=== PATIENT | male | born 1945 | race Caucasian/White ===

== ENCOUNTER 2017-10-29 11:14 | Day surgery (SDC) | payer OTHER ==
[~2017-10-29] VITALS: Ht 172.7 cm; Wt 80.0 kg
[2017-10-29] MEDS ORDERED: ATOR20 (11:36)
[2017-10-29] MEDS ORDERED: AMLO5 (11:36)
[2017-10-29] MEDS ORDERED: LOSA50 PO (11:36)
[2017-10-29] MEDS ORDERED: SYNTHROID25 MCG (11:37)
[2017-10-29] MEDS ORDERED: CLOB.05TO (11:38)
[2017-10-29] MEDS ORDERED: Omeprazole20 M1 (11:38)
[2017-10-29] MEDS ORDERED: MONT10T (11:38)
[2017-10-29] MEDS ORDERED: ZOLP10 (11:38)
[2017-10-29] MEDS ORDERED: CETI5 PO (11:38)
[2017-10-29] MEDS ORDERED: Requip0.5 MG (11:38)
[2017-10-29] MEDS ORDERED: ALBU90OI61 (11:39)
[2017-10-29] MEDS ORDERED: Glucosamine H1500 MG (11:39)
[2017-10-29] MEDS ORDERED: MAGOXI400 (11:39)
[2017-10-29] MEDS ORDERED: Betamethasone D30 ML (11:40)
== END 2017-10-29 12:13 | disposition home or self-care (01) ==
LOC: ORSCSDS 11:14
PROVIDERS: Anesthesiology
PROC: 3E0R33Z Introduction of Anti-inflammatory into Spinal Canal, Percutaneous Approach (ICD-10-PCS; principal; 2017-10-29 12:00)
DX: M51.16 Intervertebral disc disorders with radiculopathy, lumbar region (principal); K21.9 Gastro-esophageal reflux disease without esophagitis; I10 Essential (primary) hypertension; E78.00 Pure hypercholesterolemia, unspecified; E03.9 Hypothyroidism, unspecified; Z87.891 Personal history of nicotine dependence; Z79.899 Other long term (current) drug therapy
CPT/HCPCS: J1040

== ENCOUNTER 2018-06-23 07:43 | Day surgery (SDC) | payer OTHER ==
[~2018-06-23] VITALS: Ht 172.7 cm; Wt 80.0 kg
[~2018-06-23 07:43] MED LIST: ALBU90OI61; AMLO5 PO; ATOR20 PO; Betamethasone D30 ML TOP; CETI5 PO; CLOB.05TO; Glucosamine H1500 MG; LOSA50 PO; MAGOXI400; MONT10T PO; Omeprazole20 M1 PO; Requip0.5 MG PO; SYNTHROID25 MCG PO; ZOLP10 PO
[2018-06-23] MEDS ORDERED: ALBU90OI6 INH (08:47)
[2018-06-23] MEDS ORDERED: Clobetasol Emol15 GM TD (08:48)
[2018-06-23] MEDS ORDERED: Adult Low Dose81 MG PO (09:03)
--- NOTE | 2018-06-23 12:40 | NUR ---
AMBULATED TO BATHROOM. TOLERATED WELL.
--- NOTE | 2018-06-23 12:48 | NUR ---
2 CC AIR REMOVED FROM TR BAND. NO BLEEDING AT SITE. ADDITIONAL 3 CC REMOVED. SLIGHT OOZING. 2 CC AIR INSERTED.
--- NOTE | 2018-06-23 13:00 | NUR ---
1 CC AIRE REMOVED FROM TR BAND. NO BLEEDING AT SITE.
--- NOTE | 2018-06-23 13:20 | NUR ---
REMAINDER OF AIR REMOVED FROM TR BAND. SLIGHT OOZE AT SITE BUT NO ACTIVE BLEEDING.
--- NOTE | 2018-06-23 13:43 | NUR ---
DISCHARGE INSTRUCTIONS GIVEN WITH VERBAL AND WRITTEN UNDERSTANDING.
--- NOTE | 2018-06-23 13:56 | NUR ---
DRESSING FOR DISCHARGE.
--- NOTE | 2018-06-23 14:15 | NUR ---
DISCHARGED HOME VIA WHEELCHAIR. SISTER DRIVING.
== END 2018-06-23 14:15 | disposition home or self-care (01) ==
LOC: MHTC 07:43
DX: R94.30 Abnormal result of cardiovascular function study, unspecified (principal); R94.31 Abnormal electrocardiogram [ECG] [EKG]
CPT/HCPCS: 93458; 99152; 99153; C1769; C1894; J1644; J2250; J3010; J7030; Q9967

== ENCOUNTER 2018-12-31 11:47 | Emergency (ER) | payer OTHER ==
[~2018-12-31] VITALS: Ht 172.7 cm; Wt 77.1 kg
[~2018-12-31 11:47] MED LIST changes: +ALBU90OI6 INH; +Adult Low Dose81 MG PO; +Clobetasol Emol15 GM TD
[2018-12-31 12:33] LABS: Source, Urine Clean Catch
[2018-12-31 12:37] LABS: BASOPHILS ABSOLUTE AUTO 0.08 K/mm3 (0.00-0.23); BASOPHILS PERCENT AUTO 2 % (0-2); EOSINOPHILS ABSOLUTE AUTO 0.22 K/mm3 (0.00-0.68); EOSINOPHILS PERCENT AUTO 4 % (0-6); Hematocrit 44.6 % (37.0-53.0); IMMATURE GRAN ABSOLUTE AUTO 0.01 K/mm3 (0.00-0.10); IMMATURE GRAN PERCENT AUTO 0 % (0-1); LYMPHOCYTES ABSOLUTE AUTO 0.92 K/mm3 (0.84-5.20); LYMPHOCYTES PERCENT AUTO 19 % (21-46); MONOCYTES ABSOLUTE AUTO 0.46 K/mm3 (0.16-1.47); MONOCYTES PERCENT AUTO 9 % (4-13); Mean Corpuscular HGB 30.2 pg (26.0-34.0); Mean Corpuscular HGB Conc 33.6 g/dL (31.5-36.5); Mean Corpuscular Volume 90 fL (80-100); Mean Platelet Volume 11.2 fL (9.1-12.4); NEUTROPHILS ABSOLUTE AUTO 3.29 K/mm3 (1.96-9.15); NEUTROPHILS PERCENT AUTO 66 % (41-73); Platelet Count 155 K/mm3 (150-400); RDW Coefficient Variation 12.8 % (11.7-14.2); Red Blood Cell Count 4.96 M/mm3 (4.30-5.90); White Blood Cell Count 4.98 K/mm3 (4.00-11.30)
[2018-12-31 12:38] LABS: Bilirubin, Urine Neg (Neg); Blood, Urine Neg (Neg); Glucose Qualitative, Urine Neg (Neg); Ketones, Urine Neg (Neg); Leukocyte Esterase, Urine Neg (Neg); Nitrite, Urine Neg (Neg); Protein, Urine Neg (Neg); Urobilinogen, Urine NORM (Normal)
[2018-12-31 12:53] LABS: Appearance, Urine Clear (Clear); Color, Urine Yellow (P-Yellow)
[2018-12-31 13:47] LABS: Alanine Aminotransfer (ALT/SGP 22 U/L (12-78); Albumin, Blood 4.3 g/dL (3.4-5.0); Albumin/Globulin Ratio 1.3 (0.8-1.8); Alk Phos 142 U/L (40-126); Anion Gap 7 mmol/L (6-16); Aspartate Aminotrans (AST/SGOT 22 U/L (12-37); Bilirubin, Total 0.8 mg/dL (0.1-1.0); Blood Urea Nitrogen 16 mg/dL (8-24); CO2, Blood 29 mmol/L (21-32); Calcium, Blood 9.2 mg/dL (8.5-10.1); Chloride, Blood 101 mmol/L (98-108); Creatinine, Blood 1.14 mg/dL (0.60-1.20); Globulin, Blood 3.3 g/dL (2.2-4.0); Glomerular Filtration Rate >60 (60-); Glucose, Blood 96 mg/dL (70-99); Potassium, Blood 4.2 mmol/L (3.5-5.5); Sodium, Blood 137 mmol/L (136-145); Total Protein, Blood 7.6 g/dL (6.4-8.2)
[2018-12-31] MEDS ORDERED: BISA5EC PO (15:13)
[2018-12-31] MEDS ORDERED: CITRATE OF MAG296 ML PO (15:13)
== END 2018-12-31 15:27 | disposition home or self-care (01) ==
LOC: ER 11:47
PROVIDERS: Physician Assistant
DX: S30.1XXA Contusion of abdominal wall, initial encounter (principal); K59.00 Constipation, unspecified; Z87.891 Personal history of nicotine dependence; Z79.899 Other long term (current) drug therapy; Z79.82 Long term (current) use of aspirin; W06.XXXA Fall from bed, initial encounter
CPT/HCPCS: 36415; 74177; 80053; 81003; 85025; 99284-25; Q9967

== ENCOUNTER → 2022-05-06 | Outpatient (CLI) | payer OTHER ==
[~2022-05-06] MED LIST changes: +BISA5EC PO; +BREO ELLIPTA 11 EAC1 INH; +CHLO25B PO; +CITRATE OF MAG296 ML PO; +DICLOFENAC SOD100 GM TOP; +Fluocinonide15 GM TOP; +Ketoconazole120 ML TOP; +TEMOVATE15 G1 TOP
[2022-05-07 21:12] LABS: Adenovirus F 40/41 Not Detected (NOT DETECT); Astrovirus Not Detected (NOT DETECT); Campylobacter Sp Not Detected (NOT DETECT); Cryptosporidium Not Detected (NOT DETECT); Cyclospora Cayetanensis Not Detected (NOT DETECT); E. Coli O157 Not Detected (NOT DETECT); Entamoeba Histolytica Not Detected (NOT DETECT); Enteroaggregative E. coli-EAEC Not Detected (NOT DETECT); Enteropathogenic E. coli-EPEC Not Detected (NOT DETECT); Enterotoxigenic E. coli-ETEC Not Detected (NOT DETECT); Giardia Lamblia Not Detected (NOT DETECT); Norovirus GI/GII Not Detected (NOT DETECT); Plesiomonas Shigelloides Not Detected (NOT DETECT); Rotavirus A Not Detected (NOT DETECT); Salmonella Sp Not Detected (NOT DETECT); Sapovirus Not Detected (NOT DETECT); Shiga Toxin-prod E. coli-STEC Not Detected (NOT DETECT); Shigella/Enteroin E. coli-EIEC Not Detected (NOT DETECT); Vibrio Cholerae Not Detected (NOT DETECT); Vibrio Sp Not Detected (NOT DETECT); Yersinia Enterocolitica Not Detected (NOT DETECT)
== END ==
LOC: LAB SHORT 16:11
PROVIDERS: Family Medicine
DX: R19.7 Diarrhea, unspecified (principal)
CPT/HCPCS: 87507

== ENCOUNTER 2024-06-22 09:23 | Day surgery (SDC) | payer OTHER ==
[~2024-06-22] VITALS: Ht 170.2 cm; Wt 78.3 kg
[2024-06-22] VITALS (14 sets, daily range): BP systolic 93–135; BP diastolic 55–86
[~2024-06-22 09:23] MED LIST changes: +Betamethasone V15 GM TOP; +FLUT1DIS5 INH; +ROPI.25 PO
[2024-06-22] MEDS ORDERED: OxyCODONE HCL 10 MG TABCR PO SCH (09:30)
[2024-06-22] MEDS ORDERED: CeFAZolin Sodium 2,000 MG in NS 100 ML IV SCH ×2 (09:30→21:00)
[2024-06-22] MEDS ORDERED: Ropivacaine 0.5% HCl/Pf 123.125 MG,EPINEPHrine HCL 0.25 MG,Ketorolac Tromethamine 15 MG... INFIL SCH (09:30)
[2024-06-22] MEDS ORDERED: Acetaminophen 500 MG Tab PO SCH ×2 (09:30→21:00)
[2024-06-22] MEDS ORDERED: Chlorhexidine Mouth Care 15 ML UDC MT SCH (09:30)
[2024-06-22] MEDS ORDERED: Lactated Ringer's 1,000 ML IV SCH ×2 (09:30→11:30)
[2024-06-22] MEDS ORDERED: Tranexamic Acid 100 ML IV SCH (09:30)
[2024-06-22] MEDS ORDERED: CeFAZolin Sodium 2,000 MG VIAL ONE (10:15)
--- NOTE | 2024-06-22 10:22 | NUR ---
History, Chart, Medications and Allergies reviewed before start of procedure. lung sounds with expiratory rub in the bases. denies any cough our difficulty breathing. Patient reports completing Chlorhexadine shower X2 prior to admission to hospital. Patient confirms NPO status and agrees with scheduled surgery. Pre-Op teaching done. Pt verbalizes understanding.
[2024-06-22] MEDS ORDERED: DiphenhydrAMINE HCL 25 MG Cap PO PRN (11:30)
[2024-06-22] MEDS ORDERED: Magnesium Hydroxide Conc 10 ML UDC PO PRN (11:30)
[2024-06-22] MEDS ORDERED: FLU VACC TS2024-25(6MOS UP)/PF 45 MCG/0.5 ML SYRINGE IM ONE (11:30)
[2024-06-22] MEDS ORDERED: HYDROmorphone HCl 0.5 MG/0.5 ML SYR IV PRN ×2 (11:30→14:00)
[2024-06-22] MEDS ORDERED: Ondansetron HCl 2 MG / ML 2ML Vial IV PRN ×2 (11:35→14:00)
[2024-06-22] MEDS ORDERED: Metoclopramide HCl 5MG / ML 2ML Vial IV PRN (11:35)
[2024-06-22] MEDS ORDERED: Promethazine HCl 25 MG Tab PO PRN (11:35)
[2024-06-22] MEDS ORDERED: OxyCODONE HCL 5 MG TAB PO PRN ×2 (11:35)
[2024-06-22] MEDS ORDERED: Bisacodyl 10 MG Supp PR PRN (11:40)
[2024-06-22] MEDS ORDERED: Misc. Inhaler INH PRN (12:10)
[2024-06-22] MEDS ORDERED: Betamethasone Dip 0.05% Cream 15 gm TOP PRN (12:10)
[2024-06-22] MEDS ORDERED: Bupivacaine 0.75%/Dext 8.25% 2 ML Amp IT ONE ×2 (12:57→12:58)
[2024-06-22] MEDS ORDERED: propofoL 100 ML IV ONE (12:57)
[2024-06-22] MEDS ORDERED: FentaNYL Citrate 50 MCG/ML 2 ML Injection ONE (13:01)
[2024-06-22] MEDS ORDERED: Midazolam HCl 1MG / ML 2ML Vial ONE (13:01)
[2024-06-22] MEDS ORDERED: Ondansetron HCl 2 MG / ML 2ML Vial ONE (13:04)
[2024-06-22] MEDS ORDERED: Dexamethasone Sod Phos 10 MG/ML 1ML VIAL ONE (13:04)
[2024-06-22] MEDS ORDERED: Lidocaine HCl 2% 20 ML MDV ONE (13:39)
[2024-06-22] MEDS ORDERED: CeFAZolin Sodium 1000 mg Vial ONE (13:39)
[2024-06-22] MEDS ORDERED: Phenylephrine HCl 100 MCG/ML-NS 10MLSYR (1MG/10ML) ONE (13:45)
[2024-06-22] MEDS ORDERED: rOPINIRole HCl 0.25 MG Tab PO SCH (14:00)
[2024-06-22] MEDS ORDERED: FentaNYL Citrate 50 MCG/ML 2 ML Injection IV PRN ×3 (14:00→14:05)
--- NOTE | 2024-06-22 16:00 | NUR ---
POST OP ARRIVAL TO SURGICAL UNIT VIA HOSPITAL BED. ALERT, ORIENTED, & PLEASANT. ASSESSMENT CHARTED. ONLY GROSS MOVEMENT OF BLE; UNABLE TO WIGGLE TOES OR PUMP ANKLES. DENIES N/V SNACKS & DRINKS GIVEN.
[2024-06-22] MEDS ORDERED: Ketorolac Tromethamine 15mg Vial IV SCH (18:00)
[2024-06-22] MEDS ORDERED: Apixaban 5 MG Tab PO SCH (21:00)
[2024-06-22] MEDS ORDERED: Zolpidem Tartrate 10 MG Tab PO SCH (21:00)
[2024-06-22] MEDS ORDERED: Docusate Sodium 100 MG Cap PO SCH (21:00)
[2024-06-23 04:23] VITALS: BP 113/67
[2024-06-23 04:39] LABS: BASOPHILS ABSOLUTE AUTO 0.01 K/mm3 (0.00-0.23); BASOPHILS PERCENT AUTO 0 % (0-2); EOSINOPHILS PERCENT AUTO 0 % (0-6); Hematocrit 32.8 % (37.0-53.0); Hemoglobin 11.5 g/dL (13.5-17.5); IMMATURE GRAN ABSOLUTE AUTO 0.03 K/mm3 (0.00-0.10); IMMATURE GRAN PERCENT AUTO 0 % (0-1); LYMPHOCYTES ABSOLUTE AUTO 0.43 K/mm3 (0.84-5.20); LYMPHOCYTES PERCENT AUTO 4 % (21-46); MONOCYTES ABSOLUTE AUTO 0.36 K/mm3 (0.16-1.47); MONOCYTES PERCENT AUTO 3 % (4-13); Mean Corpuscular HGB 29.9 pg (26.0-34.0); Mean Corpuscular HGB Conc 35.1 g/dL (31.5-36.5); Mean Corpuscular Volume 85 fL (80-100); Mean Platelet Volume 10.8 fL (9.1-12.4); NEUTROPHILS ABSOLUTE AUTO 10.54 K/mm3 (1.96-9.15); NEUTROPHILS PERCENT AUTO 93 % (41-73); Platelet Count 142 K/mm3 (150-400); RDW Coefficient Variation 12.9 % (11.7-14.2); RDW Standard Deviation 39.3 fL (35.1-46.3); Red Blood Cell Count 3.85 M/mm3 (4.30-5.90); White Blood Cell Count 11.37 K/mm3 (4.00-11.30)
[2024-06-23 05:10] LABS: Bun/Creatinine Ratio 22.1 (12.0-20.0); Calcium, Blood 8.4 mg/dL (8.5-10.1); Creatinine, Blood 1.22 mg/dL (0.60-1.20); Potassium, Blood 3.9 mmol/L (3.5-5.5)
[2024-06-23] MEDS ORDERED: Levothyroxine Sodium 0.025 MG Tab PO SCH (06:00)
[2024-06-23] MEDS ORDERED: Omeprazole 20 MG CapCR PO SCH (06:00)
--- NOTE | 2024-06-23 06:39 | NUR ---
SHIFT SUMMARY NOC. PT POD 1 FOR RIGHT TOTAL KNEE. AQUACEL WITH SAKSHI WRAP C/D/I. PT HAD DIFFICULTY VOIDING THIS SHIFT BUT EMPTIED BLADDER IN MULTIPLE ATTEMPTS. PAIN MANAGED PER EMAR AND PT REPORT. SENSATION RETURNED POST SPINAL. PT ABLE TO AMBULATE TO ESQUIVEL WELL WITH FWW, GB AND SBA. PT TOLERATING PO. PT RESTED FOR BREIF PERIODS WITH CALL LIGHT IN REACH.
[2024-06-23 07:14] VITALS: BP 123/72
[2024-06-23] MEDS ORDERED: Montelukast Sodium 10 MG Tab PO SCH (09:00)
[2024-06-23] MEDS ORDERED: AmLODIPine Besylate 5 MG Tab PO SCH (09:00)
[2024-06-23] MEDS ORDERED: Atorvastatin 10 MG Tab PO SCH (09:00)
[2024-06-23] MEDS ORDERED: Losartan Potassium 50 MG Tab PO SCH (09:00)
[2024-06-23] MEDS ORDERED: HydroCHLOROthiazide 25 mg Tab PO SCH (09:00)
[2024-06-23] MEDS ORDERED: ELIQUIS2.5 MG PO (10:06)
--- NOTE | 2024-06-23 10:37 | NUR ---
DISCHARGE IV TAKEN OUT INTACT, ALL INSTRUCTIONS GIVEN AND SIGNED, VERBALIZED UNDERSTANDING. ICE PACK AND DISCHARGE INSTRUCTION WITH PATIENT, WHEELED OUT TO PRIVATE CAR.
== END 2024-06-23 10:31 | disposition home or self-care (01) ==
LOC: ORSCMMR 09:23 → ORD 11:00 → ORSCMMR 11:00 → ORD 12:00 → SURS 15:38 → ORSCMMR 06-23 10:31
PROVIDERS: Orthopaedic Surgery
PROC: 0SRC0JA Replacement of Right Knee Joint with Synthetic Substitute, Uncemented, Open Approach (ICD-10-PCS; principal; 2024-06-22 12:00)
DX: M17.11 Unilateral primary osteoarthritis, right knee (principal); I10 Essential (primary) hypertension; E03.9 Hypothyroidism, unspecified; J44.9 Chronic obstructive pulmonary disease, unspecified; I25.10 Atherosclerotic heart disease of native coronary artery without angina pectoris; Z79.899 Other long term (current) drug therapy; K21.9 Gastro-esophageal reflux disease without esophagitis
CPT/HCPCS: 36415; 73560-RT; 80048; 85025; 97116; 97162; 97530; A9270; C1713; C1776; J0171; J0690; J0735; J1100; J1885; J2250; J2371; J2405; J2704; J2795; J3010; J7120